=== PATIENT | female | born 1970 | race Caucasian/White ===

== ENCOUNTER 2020-08-20 16:47 | Observation (INO) | payer OTHER ==
[2020-08-20 17:14] LABS: Glucose,Whole Blood 199 mg/dL (75-99)
[2020-08-20] MEDS ORDERED: SODIUM CHLORIDE 0.9% 1,000 ML IV ONE (18:16)
--- NOTE | 2020-08-20 18:19 | ED ---
General Adult HPI - General Chief complaint: Weakness Stated complaint: Vomiting,Low BP,Dizziness Time Seen by Provider: 08/20/20 18:09 Source: patient, RN notes reviewed, old records reviewed Mode of arrival: wheelchair Limitations: no limitations - History of Present Illness Initial comments: 49-year-old female presented for evaluation of weakness, vomiting, and lightheadedness. Patient states her blood pressure has been running low. She had recent admission at outside hospital approximately 3 weeks ago with similar low blood pressures. She previously had high blood pressure and was on medication but has been off his medication for the past 3 months. She reports vomiting for the past 2 days, she's been unable to keep anything down. No collins rrhea. No abdominal pain. She had an episode of chest discomfort, no central radiating chest pain. No dyspnea. No dysuria. No fever or URI symptoms. - Related Data Home Medications Medication Instructions Recorded Confirmed Empagliflozin [Jardiance] 25 mg PO DAILY 08/20/20 08/20/20 Insulin Aspart Protam & Aspart See Protocol SQ AC-BID 08/20/20 08/20/20 [NovoLOG MIX 70-30 Flexpen] Lansoprazole [Prevacid] 30 mg PO DAILY 08/20/20 08/20/20 Semaglutide [Ozempic] 1 mg SQ PEREIRA 08/20/20 08/20/20 Allergies Allergy/AdvReac Type Severity Reaction Status Date / Time No Known Allergies Allergy Verified 08/20/20 20:10 Review of Systems ROS Statement: Those systems with pertinent positive or pertinent negative responses have been documented in the HPI. ROS Other: All systems not noted in ROS Statement are negative. Past Medical History Past Medical History: No Reported History History of Any Multi-Drug Resistant Organisms: None Reported Past Surgical History: Appendectomy, Cholecystectomy, Tonsillectomy Smoking Status: Never smoker Past Alcohol Use History: None Reported Past Drug Use History: None Reported General Exam Limitations: no limitations General appearance: alert, in no apparent distress Head exam: Present: atraumatic, normocephalic Eye exam: Present: normal appearance, PERRL ENT exam: Present: mucous membranes dry Neck exam: Present: normal inspection. Absent: tenderness, meningismus Respiratory exam: Present: normal lung sounds bilaterally. Absent: respiratory distress, wheezes Cardiovascular Exam: Present: regular rate, normal rhythm GI/Abdominal exam: Present: soft. Absent: distended, tenderness, guarding, rebo und Neurological exam: Present: alert, oriented X3, CN II-XII intact. Absent: motor sensory deficit Psychiatric exam: Present: normal affect, normal mood Skin exam: Present: warm, dry, intact. Absent: cyanosis, diaphoretic Course Vital Signs 08/20/20 08/20/20 17:09 19:53 Temperature 98.4 F Pulse Rate 107 H 100 Respiratory 18 18 Rate Blood Pressure 86/59 113/72 O2 Sat by Pulse 98 98 Oximetry EKG Findings - EKG Comments: EKG Findings:: EKG: Normal sinus rhythm, prolonged QT, no ST segment elevation, rate of 98, IN interval 120, QRS duration 88, QTC 497 Medical Decision Making - Medical Decision Making 49-year-old female presenting for evaluation of lightheadedness, hypotension. Symptoms have been somewhat ongoing for the past one month she had an admission at an outside hospital. She has been vomiting. Workup reveals EKG shows sinus rhythm, chest x-ray negative for acute cardio pulmonary disease, abdominal x-ray is negative for obstruction or intraperitoneal free air. She has mild leukocytosis. She has a sodium of 122 and a low chloride. Her blood glucose is 199. She has 4+ glucose and 2+ ketones on urinalysis. CO2 is normal. Patient is given 1 L normal saline bolus, placed on 75 mL normal saline per hour. Additional laboratory tests and urine tests have been ordered these results are pending. Case discussed with Dr. Valentin who will admit the patient. Nephrology is placed on consult, nephrology has been paged. - Lab Data Result diagrams: 08/20/20 18:51 08/20/20 18:51 Lab Results 08/20/20 08/20/20 08/20/20 Range/Units 17:13 18:51 18:51 WBC 13.6 H (3.8-10.6) k/uL RBC 5.87 H (3.80-5.40) m/uL Hgb 15.0 (11.4-16.0) gm/dL Hct 44.0 (34.0-46.0) % MCV 75.0 L (80.0-100.0) fL MCH 25.6 (25.0-35.0) pg MCHC 34.1 (31.0-37.0) g/dL RDW 14.9 (11.5-15.5) % Plt Count 288 (150-450) k/uL MPV 9.0 Neutrophils % 82 % Lymphocytes % 9 % Monocytes % 7 % Eosinophils % 0 % Basophils % 1 % Neutrophils # 11.2 H (1.3-7.7) k/uL Lymphocytes # 1.2 (1.0-4.8) k/uL Monocytes # 0.9 (0-1.0) k/uL Eosinophils # 0.0 (0-0.7) k/uL Basophils # 0.1 (0-0.2) k/uL Microcytosis Slight PT 10.8 (9.0-12.0) sec INR 1.0 (<1.2) APTT 22.2 (22.0-30.0) sec Sodium (137-145) mmol/L Potassium (3.5-5.1) mmol/L Chloride (98-107) mmol/L Carbon Dioxide (22-30) mmol/L Anion Gap mmol/L BUN (7-17) mg/dL Creatinine (0.52-1.04) mg/dL Est GFR (CKD-EPI)AfAm (>60 ml/min/1.73 sqM) Est GFR (CKD-EPI)NonAf (>60 ml/min/1.73 sqM) Glucose (74-99) mg/dL POC Glucose (mg/dL) 199 H (75-99) mg/dL POC Glu Hand Stripper ID Shanique Kahn Plasma Lactic Acid Jone (0.7-2.0) mmol/L Calcium (8.4-10.2) mg/dL Magnesium (1.6-2.3) mg/dL Total Bilirubin (0.2-1.3) mg/dL AST (14-36) U/L ALT (4-34) U/L Alkaline Phosphatase (38-126) U/L Troponin I (0.000-0.034) ng/mL Total Protein (6.3-8.2) g/dL Albumin (3.5-5.0) g/dL Urine Color Urine Appearance (Clear) Urine pH (5.0-8.0) Ur Specific [place] (1.001-1.035) Urine Protein (Negative) Urine Glucose (UA) (Negative) Urine Ketones (Negative) Urine Blood (Negative) Urine Nitrite (Negative) Urine Bilirubin (Negative) Urine Urobilinogen (<2.0) mg/dL Ur Leukocyte Esterase (Negative) Urine RBC (0-5) /hpf Urine WBC (0-5) /hpf Ur Squamous Epith Cells (0-4) /hpf Urine Bacteria (None) /hpf Hyaline Casts (0-2) /lpf Urine Mucus (None) /hpf 08/20/20 08/20/20 08/20/20 Range/Units 18:51 18:51 18:51 WBC (3.8-10.6) k/uL RBC (3.80-5.40) m/uL Hgb (11.4-16.0) gm/dL Hct (34.0-46.0) % MCV (80.0-100.0) fL MCH (25.0-35.0) pg MCHC (31.0-37.0) g/dL RDW (11.5-15.5) % Plt Count (150-450) k/uL MPV Neutrophils % % Lymphocytes % % Monocytes % % Eosinophils % % Basophils % % Neutrophils # (1.3-7.7) k/uL Lymphocytes # (1.0-4.8) k/uL Monocytes # (0-1.0) k/uL Eosinophils # (0-0.7) k/uL Basophils # (0-0.2) k/uL Microcytosis PT (9.0-12.0) sec INR (<1.2) APTT (22.0-30.0) sec Sodium 122 L (137-145) mmol/L Potassium 3.9 (3.5-5.1) mmol/L Chloride 78 L (98-107) mmol/L Carbon Dioxide 24 (22-30) mmol/L Anion Gap 20 mmol/L BUN 30 H (7-17) mg/dL Creatinine 1.14 H (0.52-1.04) mg/dL Est GFR (CKD-EPI)AfAm 65 (>60 ml/min/1.73 sqM) Est GFR (CKD-EPI)NonAf 57 (>60 ml/min/1.73 sqM) Glucose 191 H (74-99) mg/dL POC Glucose (mg/dL) (75-99) mg/dL POC Glu Hand Stripper ID Plasma Lactic Acid Jone 1.7 (0.7-2.0) mmol/L Calcium 10.7 H (8.4-10.2) mg/dL Magnesium 2.1 (1.6-2.3) mg/dL Total Bilirubin 1.4 H (0.2-1.3) mg/dL AST 23 (14-36) U/L ALT 16 (4-34) U/L Alkaline Phosphatase 62 (38-126) U/L Troponin I (0.000-0.034) ng/mL Total Protein 7.8 (6.3-8.2) g/dL Albumin 4.8 (3.5-5.0) g/dL Urine Color Yellow Urine Appearance Cloudy H (Clear) Urine pH 5.0 (5.0-8.0) Ur Specific [place] 1.026 (1.001-1.035) Urine Protein Trace H (Negative) Urine Glucose (UA) 4+ H (Negative) Urine Ketones 3+ H (Negative) Urine Blood Negative (Negative) Urine Nitrite Negative (Negative) Urine Bilirubin Negative (Negative) Urine Urobilinogen <2.0 (<2.0) mg/dL Ur Leukocyte Esterase Moderate H (Negative) Urine RBC 6 H (0-5) /hpf Urine WBC 11 H (0-5) /hpf Ur Squamous Epith Cells 4 (0-4) /hpf Urine Bacteria Occasional H (None) /hpf Hyaline Casts 10 H (0-2) /lpf Urine Mucus Few H (None) /hpf 08/20/20 Range/Units 18:51 WBC (3.8-10.6) k/uL RBC (3.80-5.40) m/uL Hgb (11.4-16.0) gm/dL Hct (34.0-46.0) % MCV (80.0-100.0) fL MCH (25.0-35.0) pg MCHC (31.0-37.0) g/dL RDW (11.5-15.5) % Plt Count (150-450) k/uL MPV Neutrophils % % Lymphocytes % % Monocytes % % Eosinophils % % Basophils % % Neutrophils # (1.3-7.7) k/uL Lymphocytes # (1.0-4.8) k/uL Monocytes # (0-1.0) k/uL Eosinophils # (0-0.7) k/uL Basophils # (0-0.2) k/uL Microcytosis PT (9.0-12.0) sec INR (<1.2) APTT (22.0-30.0) sec Sodium (137-145) mmol/L Potassium (3.5-5.1) mmol/L Chloride (98-107) mmol/L Carbon Dioxide (22-30) mmol/L Anion Gap mmol/L BUN (7-17) mg/dL Creatinine (0.52-1.04) mg/dL Est GFR (CKD-EPI)AfAm (>60 ml/min/1.73 sqM) Est GFR (CKD-EPI)NonAf (>60 ml/min/1.73 sqM) Glucose (74-99) mg/dL POC Glucose (mg/dL) (75-99) mg/dL POC Glu Hand Stripper ID Plasma Lactic Acid Jone (0.7-2.0) mmol/L Calcium (8.4-10.2) mg/dL Magnesium (1.6-2.3) mg/dL Total Bilirubin (0.2-1.3) mg/dL AST (14-36) U/L ALT (4-34) U/L Alkaline Phosphatase (38-126) U/L Troponin I <0.012 (0.000-0.034) ng/mL Total Protein (6.3-8.2) g/dL Albumin (3.5-5.0) g/dL Urine Color Urine Appearance (Clear) Urine pH (5.0-8.0) Ur Specific [place] (1.001-1.035) Urine Protein (Negative) Urine Glucose (UA) (Negative) Urine Ketones (Negative) Urine Blood (Negative) Urine Nitrite (Negative) Urine Bilirubin (Negative) Urine Urobilinogen (<2.0) mg/dL Ur Leukocyte Esterase (Negative) Urine RBC (0-5) /hpf Urine WBC (0-5) /hpf Ur Squamous Epith Cells (0-4) /hpf Urine Bacteria (None) /hpf Hyaline Casts (0-2) /lpf Urine Mucus (None) /hpf Disposition Clinical Impression: Hyponatremia, Dehydration, Hypotension Disposition: ADMITTED IP TO THIS HOSP Condition: Stable Is patient prescribed a controlled substance at d/c from ED?: No Referrals: Greer Golden MD [Primary Care Provider] - 1-2 days Decision to Admit Reason: Admit from EC Decision Date: 08/20/20 Decision Time: 20:33
[2020-08-20 19:10] LABS: Basophils # (A) 0.1 k/uL (0-0.2); Basophils % (A) 1 %; Eosinophils % (A) 0 %; Lymphocytes # (A) 1.2 k/uL (1.0-4.8); Lymphocytes % (A) 9 %; MCH 25.6 pg (25.0-35.0); MCHC 34.1 g/dL (31.0-37.0); Microcytosis Slight; Monocytes # (A) 0.9 k/uL (0-1.0); Monocytes % (A) 7 %; Neutrophils # (A) 11.2 k/uL (1.3-7.7); Neutrophils % (A) 82 %; Platelet Count 288 k/uL (150-450); RBC 5.87 m/uL (3.80-5.40); RDW 14.9 % (11.5-15.5); WBC 13.6 k/uL (3.8-10.6)
[2020-08-20 19:15] LABS: Appearance,Urine Cloudy (Clear); Bacteria,Urine Occasional /hpf; Bilirubin,Urine Negative (Negative); Blood,Urine Negative (Negative); Color,Urine Yellow; Glucose,Urine (UA) 4+ (Negative); Hyaline Casts,Urine 10 /lpf (0-2); Leukocyte Esterase,Urine Moderate (Negative); Mucus,Urine Few /hpf; Nitrite,Urine Negative (Negative); Protein,Urine Trace (Negative); RBC,Urine 6 /hpf (0-5); Specific Gravity,Urine 1.026 (1.001-1.035); Squamous Epithelial Cell,Urine 4 /hpf (0-4); Urobilinogen,Urine <2.0 mg/dL (<2.0); WBC,Urine 11 /hpf (0-5)
[2020-08-20 19:18] LABS: Ketones,Urine 3+ (Negative)
[2020-08-20 19:19] LABS: Albumin 4.8 g/dL (3.5-5.0); Calcium 10.7 mg/dL (8.4-10.2); Magnesium 2.1 mg/dL (1.6-2.3); Potassium 3.9 mmol/L (3.5-5.1); Total Bilirubin 1.4 mg/dL (0.2-1.3); Total Protein 7.8 g/dL (6.3-8.2)
--- NOTE | 2020-08-20 19:19 | XR ---
EXAMINATION TYPE: XR KUB DATE OF EXAM: 08/20/2020 COMPARISON: NONE HISTORY: Vomiting TECHNIQUE: 2 views upright FINDINGS: Bowel gas pattern is normal. There is no sign of intestinal obstruction or pneumoperitoneum . Fecal pattern is normal. Lung bases are clear. There are clips from cholecystectomy. There are no c alcifications over the kidneys. IMPRESSION: Nonacute abdomen.
--- NOTE | 2020-08-20 19:21 | XR ---
EXAMINATION TYPE: XR chest 2V DATE OF EXAM: 08/20/2020 COMPARISON: NONE HISTORY: Vomiting. TECHNIQUE: 2 views FINDINGS: Heart and mediastinum are normal. Lungs are clear. Diaphragm is normal. There are chest wallace ds. Bony thorax appears normal. IMPRESSION: Normal chest.
[2020-08-20 19:39] LABS: Partial Thromboplastin Time 22.2 sec (22.0-30.0); Prothrombin Time 10.8 sec (9.0-12.0)
[2020-08-20] MEDS ORDERED: NALOXONE 0.4 MG/ML 1 ML VIAL IV PRN (20:14)
[2020-08-20] MEDS: SODIUM CHLORIDE 0.9% 1,000 ML IV SCH ×2 (20:44→20:55)
[2020-08-20] MEDS ORDERED: PANTOPRAZOLE 40 MG TABLET PO STA (22:14)
[2020-08-21 07:36] LABS: Basophils # (A) 0.1 k/uL (0-0.2); Basophils % (A) 1 %; Eosinophils # (A) 0.1 k/uL (0-0.7); Eosinophils % (A) 1 %; HCT 42.2 % (34.0-46.0); HGB 14.2 gm/dL (11.4-16.0); Lymphocytes # (A) 2.3 k/uL (1.0-4.8); Lymphocytes % (A) 26 %; MCH 25.6 pg (25.0-35.0); MCHC 33.7 g/dL (31.0-37.0); MCV 75.9 fL (80.0-100.0); Mean Platelet Volume 8.5; Microcytosis Slight; Monocytes # (A) 0.8 k/uL (0-1.0); Monocytes % (A) 9 %; Neutrophils # (A) 5.4 k/uL (1.3-7.7); Neutrophils % (A) 61 %; Platelet Count 276 k/uL (150-450); RBC 5.56 m/uL (3.80-5.40); RDW 15.1 % (11.5-15.5)
[2020-08-21 08:21] LABS: African American GFR (CKD) >90 (>60 ml/min/1.73 sqM); Anion Gap 11 mmol/L; Blood Urea Nitrogen 21 mg/dL (7-17); Carbon Dioxide 32 mmol/L (22-30); Chloride 86 mmol/L (98-107); Glucose 94 mg/dL (74-99); Magnesium 2.1 mg/dL (1.6-2.3); Non-African American GFR(CKD) >90 (>60 ml/min/1.73 sqM); Phosphorus 3.8 mg/dL (2.5-4.5); Potassium 4.4 mmol/L (3.5-5.1); Sodium 129 mmol/L (137-145)
[2020-08-21] MEDS: HEPARIN SODIUM,PORCINE 5,000 UNIT/ML 1 ML VIAL SQ SCH ×2 (09:34→21:24)
[2020-08-21] MEDS: SODIUM CHLORIDE 0.9% 1,000 ML IV SCH (09:34)
--- NOTE | 2020-08-21 09:38 | P.HPIM ---
History of Present Illness This is a pleasant 49 years old female with past medical history of diabetes mellitus, GERD. Presents because of weakness, vomiting and lightheadedness. her PCP is Dr. Mendez. Also she has hypertension. At home she was on a guardian's, NovoLog mix 70-30, Prevacid and semaglutide . She is to follow up with comic book designer Dr. Saini and she is currently on juardian's, semaglutide and insulin sliding scale but really she did not needed. She presents because of feeling hypertensive, dizzy and some confusion, she usually her blood pressure is in the range of 125/70 to 80s, before coming to the hospital this time her blood pressure was 80/58 when she checked it at home. Also she vomited about 5 times over the last couple days but no abdominal pain or diarrhea. She denies dysuria but she admits for polyuria as she's been frequently with good amounts, which is unlikely only because of hyperglycemia because she is dehydrated already and hypertensive however her urinalysis was suspicious for infection although she denies dysuria or back pain or fever. She states 3 weeks ago she has similar symptoms and she wanted [facility] where they did cardiac workup and it was unrevealing and then released. She denies smoking, alcohol or illicit drugs On admission her blood pressure was 86/59, tachycardia at 100 107, afebrile. Saturating 99% on room air. She has some leukocytosis of 13.6 came back to normal at 9.0, hemoglobin 14.2 and platelets are normal at 276. She has low sodium level at 122 and this morning 129, she has mild acute kidney injury with creatinine 1.1 came back to normal at 0.6. Urinalysis is suspicious for infection. Troponin is negative. Liver enzymes elevated. Urine osmolality was elevated at 491. EKG showing normal sinus rhythm at 98 BPM with no significant ST-T changes Chest x-ray: No acute process. KUB of the abdomen: Nonacute abdomen Review of Systems CONSTITUTIONAL: No fever, no malaise, no fatigue. HEENT: No recent visual problems or hearing problems. Denied any sore throat. CARDIOVASCULAR: No orthopnea, PND, no palpitations, no syncope. PULMONARY: No shortness of breath, no cough, no hemoptysis. GASTROINTESTINAL: No diarrhea, no nausea, no vomiting, no abdominal pain. Normoactive bowel sounds. NEUROLOGICAL: No headaches, no weakness, no numbness. HEMATOLOGICAL: Denies any bleeding or petechiae. GENITOURINARY: Denies any burning micturition, frequency, or urgency. MUSCULOSKELETAL/RHEUMATOLOGICAL: Denies any joint pain, swelling, or any muscle pain. ENDOCRINE: Denies any polyuria or polydipsia. Past Medical History Past Medical History: Diabetes Mellitus, GERD/Reflux History of Any Multi-Drug Resistant Organisms: None Reported Past Surgical History: Appendectomy, Cholecystectomy, Tonsillectomy Past Anesthesia/Blood Transfusion Reactions: No Reported Reaction Past Psychological History: No Psychological Hx Reported Smoking Status: Never smoker Past Alcohol Use History: None Reported Past Drug Use History: None Reported Medications and Allergies Home Medications Medication Instructions Recorded Confirmed Type Empagliflozin [Jardiance] 25 mg PO DAILY 08/20/20 08/20/20 History Insulin Aspart Protam & Aspart See Protocol SQ AC-BID 08/20/20 08/20/20 History [NovoLOG MIX 70-30 Flexpen] Lansoprazole [Prevacid] 30 mg PO DAILY 08/20/20 08/20/20 History Semaglutide [Ozempic] 1 mg SQ PEREIRA 08/20/20 08/20/20 History Allergies Allergy/AdvReac Type Severity Reaction Status Date / Time No Known Allergies Allergy Verified 08/20/20 20:10 Physical Exam Vitals: Vital Signs Temp Pulse Pulse Resp BP BP Pulse Ox 08/21/20 07:37 98.3 F 89 16 99/64 99 08/21/20 06:20 97.8 F 87 17 117/56 97 08/20/20 23:54 97.6 F 95 17 111/69 99 08/20/20 22:08 100 18 115/64 99 08/20/20 20:55 100 18 107/70 99 08/20/20 19:53 100 18 113/72 98 08/20/20 17:09 98.4 F 107 H 18 86/59 98 Intake and Output 08/20/20 08/21/20 08/21/20 22:59 06:59 14:59 Intake Total 885 Output Total 300 Balance 585 Intake: Intake, IV Titration 525 Amount Sodium Chloride 0.9% 1, 525 000 ml @ 75 mls/hr IV . [id number] [facility] Rx#:[id number] Oral 360 Output: Urine 300 Other: Voiding Method Toilet # Voids 1 Weight 78.925 kg 78.925 kg GENERAL: The patient is alert and oriented x3, not in any acute distress. Well developed, well nourished. HEENT: Pupils are round and equally reacting to light. EOMI. No scleral icterus. No conjunctival pallor. Normocephalic, atraumatic. No pharyngeal erythema. No thyromegaly. CARDIOVASCULAR: S1 and S2 present. No murmurs, rubs, or gallops. PULMONARY: Chest is clear to auscultation, no wheezing or crackles. ABDOMEN: Soft, nontender, nondistended, normoactive bowel sounds. No palpable organomegaly. MUSCULOSKELETAL: No joint swelling or deformity. EXTREMITIES: No cyanosis, clubbing, or pedal edema. NEUROLOGICAL: Gross neurological examination did not reveal any focal deficits. SKIN: No rashes. No petechiae Results CBC & Chem 7: 08/21/20 07:04 08/21/20 07:04 Labs: Abnormal Lab Results - Last 24 Hours (Table) 08/20/20 08/20/20 08/20/20 Range/Units 17:13 18:51 18:51 WBC 13.6 H (3.8-10.6) k/uL RBC 5.87 H (3.80-5.40) m/uL MCV 75.0 L (80.0-100.0) fL Neutrophils # 11.2 H (1.3-7.7) k/uL Sodium (137-145) mmol/L Chloride (98-107) mmol/L Carbon Dioxide (22-30) mmol/L BUN (7-17) mg/dL Creatinine (0.52-1.04) mg/dL Glucose (74-99) mg/dL POC Glucose (mg/dL) 199 H (75-99) mg/dL Osmolality (280-301) mosm/kg Calcium (8.4-10.2) mg/dL Total Bilirubin (0.2-1.3) mg/dL Urine Appearance Cloudy H (Clear) Urine Protein Trace H (Negative) Urine Glucose (UA) 4+ H (Negative) Urine Ketones 3+ H (Negative) Ur Leukocyte Esterase Moderate H (Negative) Urine RBC 6 H (0-5) /hpf Urine WBC 11 H (0-5) /hpf Urine Bacteria Occasional H (None) /hpf Hyaline Casts 10 H (0-2) /lpf Urine Mucus Few H (None) /hpf 08/20/20 08/21/20 08/21/20 Range/Units 18:51 07:04 07:04 WBC (3.8-10.6) k/uL RBC 5.56 H (3.80-5.40) m/uL MCV 75.9 L (80.0-100.0) fL Neutrophils # (1.3-7.7) k/uL Sodium 122 L 129 L (137-145) mmol/L Chloride 78 L 86 L (98-107) mmol/L Carbon Dioxide 32 H (22-30) mmol/L BUN 30 H 21 H (7-17) mg/dL Creatinine 1.14 H (0.52-1.04) mg/dL Glucose 191 H (74-99) mg/dL POC Glucose (mg/dL) (75-99) mg/dL Osmolality 275 L (280-301) mosm/kg Calcium 10.7 H (8.4-10.2) mg/dL Total Bilirubin 1.4 H (0.2-1.3) mg/dL Urine Appearance (Clear) Urine Protein (Negative) Urine Glucose (UA) (Negative) Urine Ketones (Negative) Ur Leukocyte Esterase (Negative) Urine RBC (0-5) /hpf Urine WBC (0-5) /hpf Urine Bacteria (None) /hpf Hyaline Casts (0-2) /lpf Urine Mucus (None) /hpf Microbiology - Last 24 Hours (Table) 08/20/20 18:51 Urine Culture - Preliminary Urine,Voided Thrombosis Risk Factor Assmnt - Choose All That Apply Any of the Below Risk Factors Present?: Yes Each Factor Represents 1 point: Age 41-60 years Other Risk Factors: No Other congenital or acquired thrombophilia - If yes, enter type in comment: No Thrombosis Risk Factor Assessment Total Risk Factor Score: 1 Thrombosis Risk Factor Assessment Level: Low Risk Assessment and Plan Assessment: Hyponatremia Dehydration and hypovolemia Acute kidney injury, improved Acute urinary tract infection History of GERD Diabetes mellitus Plan: This is a pleasant 49 years old female who presents with UTI, dehydration and hyponatremia. Start the patient on ceftriaxone follow-up urine culture. Monitor sodium and follow-up not durable medical equipment technician recommendation. Continue gentle hydration. Check hemoglobin A1c Labs and medication were reviewed.. Continue same treatment. Continue with symptomatic treatment. Resume home medication. Monitor lytes and vitals. DVT and GI prophylaxis. Further recommendations depends on the clinical course of the patient DVT prophylaxis: Subcutaneous heparin GI Prophylaxis: Ppi
--- NOTE | 2020-08-21 12:01 | P.NPCON ---
History of Present Illness - Reason for Consult hyponatremia - History of Present Illness Reason for consultation: Hyponatremia History of present illness: The patient is a 49-year-old female seen in renal consultation for hyponatremia. Patient states she was recently at [facility] with similar complaints and underwent cardiac workup. She didn't feel well enough for discharge. Patient states last few days she's been feeling lightheaded and dizzy. She denies any falls or syncopal episodes. She did vomit about 2 days ago but none since. She has been voiding. No hematuria or dysuria. Appetite has been poor the last couple of days. She has been drinking quite a bit of water to keep herself hydrated. No history of malignancy. Denies taking any diuretics at home. No history of high blood pressure. She does have history of diabetes. Denies family history of renal di sease but states her father had [place]'s disease. No chest pain or shortness of breath. No edema. No fever or chills. Sodium level was 122 on admission and she received a 1 L normal saline bolus and was then started on normal saline at 75 mL an hour for maintenance fluids. Sodium level 129 this morning. Vital signs are stable. General: The patient appeared well nourished and normally developed. HEENT: Head exam is unremarkable. Neck is without jugular venous distension. LUNGS: Lungs are clear to auscultation and percussion. Breath sounds decreased. HEART: Rate and Rhythm are regular. ABDOMEN: Soft, nontender. EXTREMITITES: No clubbing, cyanosis, or edema. Past Medical History Past Medical History: Diabetes Mellitus, GERD/Reflux History of Any Multi-Drug Resistant Organisms: None Reported Past Surgical History: Appendectomy, Cholecystectomy, Tonsillectomy Past Anesthesia/Blood Transfusion Reactions: No Reported Reaction Past Psychological History: No Psychological Hx Reported Smoking Status: Never smoker Past Alcohol Use History: None Reported Past Drug Use History: None Reported Medications and Allergies Home Medications Medication Instructions Recorded Confirmed Type Empagliflozin [Jardiance] 25 mg PO DAILY 08/20/20 08/20/20 History Insulin Aspart Protam & Aspart See Protocol SQ AC-BID 08/20/20 08/20/20 History [NovoLOG MIX 70-30 Flexpen] Lansoprazole [Prevacid] 30 mg PO DAILY 08/20/20 08/20/20 History Semaglutide [Ozempic] 1 mg SQ PEREIRA 08/20/20 08/20/20 History Allergies Allergy/AdvReac Type Severity Reaction Status Date / Time No Known Allergies Allergy Verified 08/20/20 20:10 Physical Exam Vitals: Vital Signs Temp Pulse Pulse Resp BP BP Pulse Ox 08/21/20 07:37 98.3 F 89 16 99/64 99 08/21/20 06:20 97.8 F 87 17 117/56 97 08/20/20 23:54 97.6 F 95 17 111/69 99 08/20/20 22:08 100 18 115/64 99 08/20/20 20:55 100 18 107/70 99 08/20/20 19:53 100 18 113/72 98 08/20/20 17:09 98.4 F 107 H 18 86/59 98 Intake and Output 08/20/20 08/21/20 08/21/20 22:59 06:59 14:59 Intake Total 885 200 Output Total 300 Balance 585 200 Intake: Intake, IV Titration 525 Amount Sodium Chloride 0.9% 1, 525 000 ml @ 75 mls/hr IV . [id number] [facility] Rx#:[id number] Oral 360 200 Output: Urine 300 Other: Voiding Method Toilet # Voids 1 Weight 78.925 kg 78.925 kg Results - Lab Results Most recent lab results Calcium 10.0 mg/dL (8.4-10.2) 08/21/20 07:04 Phosphorus 3.8 mg/dL (2.5-4.5) 08/21/20 07:04 Magnesium 2.1 mg/dL (1.6-2.3) 08/21/20 07:04 08/21/20 07:04 08/21/20 07:04 Assessment and Plan Plan: Assessment: 1. Hypovolemic hyponatremia improved with IV hydration. TSH normal. Rule out adrenal insufficiency due to hypotension. Urine sodium 57 and urine osmolality 491. 2. Mild acute kidney injury mostly prerenal improved with IV hydration. 3. Pyuria maintained on antibiotics. Urine culture pending. Plan: Hep-Lock IV fluids. Check a.m. cortisol level. 1500 mL fluid restriction. Encourage oral intake, particularly protein. Repeat electrolytes in the morning. Thank you for the consultation. I will continue to follow the patient with you during her hospital stay.
[2020-08-21 15:31] LABS: Hemoglobin A1C 6.9 % (4.0-6.0)
[2020-08-22 08:31] LABS: Glucose,Whole Blood 115 mg/dL (75-99)
[2020-08-22] MEDS: HEPARIN SODIUM,PORCINE 5,000 UNIT/ML 1 ML VIAL SQ SCH ×2 (08:31→21:31)
[2020-08-22 09:37] LABS: African American GFR (CKD) 117.1 (60.0-200.0); BUN/Creat Ratio 21.43 Ratio (12.00-20.00); Calcium 9.9 mg/dL (8.7-10.3); Magnesium 2.3 mg/dL (1.5-2.4); Potassium 4.2 mmol/L (3.5-5.5)
[2020-08-22 12:58] LABS: Glucose,Whole Blood 94 mg/dL (75-99)
[2020-08-22] MEDS ORDERED: COSYNTROPIN 0.25 MG VIAL IVP ONE (15:07)
--- NOTE | 2020-08-22 15:08 | P.PN ---
Subjective Patient is seen in follow-up for hyponatremia. Sodium level normal today. GFR at baseline. Blood pressure stable. Feels tired. Vital signs are stable. General: The patient appeared well nourished and normally developed. HEENT: Head exam is unremarkable. Neck is without jugular venous distension. LUNGS: Lungs are clear to auscultation and percussion. Breath sounds decreased. HEART: Rate and Rhythm are regular. First and second heart sounds normal. No murmurs, rubs or gallops. ABDOMEN: Soft, nontender. EXTREMITITES: No clubbing, cyanosis, or edema. Objective - Vital Signs Vital signs: Vital Signs Temp 97.3 F L 08/22/20 12: Pulse 80 08/22/20 12:02 Resp 17 08/22/20 12: BP 107/72 08/22/20 12:02 Pulse Ox 99 08/22/20 12:02 Intake & Output 08/21/20 08/22/20 08/22/20 18:59 06:59 18:59 Intake Total 200 360 Balance 200 360 Intake: Oral 200 360 Other: Voiding Method Toilet # Voids 2 1 - Labs CBC & Chem 7: 08/21/20 07:04 08/22/20 05:48 Labs: Abnormal Lab Results - Last 24 Hours (Table) 08/21/20 08/22/20 08/22/20 Range/Units 07:04 05:48 08:30 Chloride 95 L (96-109) mmol/L Carbon Dioxide 34.0 H (21.6-31.8) mmol/L BUN/Creatinine Ratio 21.43 H (12.00-20.00) Ratio Glucose 117 H (70-110) mg/dL POC Glucose (mg/dL) 115 H (75-99) mg/dL Hemoglobin A1c 6.9 H (4.0-6.0) % Microbiology - Last 24 Hours (Table) 08/20/20 18:51 Urine Culture - Preliminary Urine,Voided Gram Neg Bacilli 08/20/20 18:51 Blood Culture - Preliminary Blood No Growth after 24 hours Assessment and Plan Plan: Assessment: 1. Hypovolemic hyponatremia improved with IV hydration. TSH normal. Morning cortisol normal but a little on the lower end. Urine sodium 57 and urine osmolality 491. 2. Mild acute kidney injury mostly prerenal improved with IV hydration. 3. UTI with urine culture positive for gram-negative bacilli maintained on antibiotics. Plan: 1500 mL fluid restriction. Encourage oral intake, particularly protein. Check cosyntropin stimulation test.
[2020-08-22 17:08] LABS: Glucose,Whole Blood 122 mg/dL (75-99)
[2020-08-22 20:57] LABS: Glucose,Whole Blood 253 mg/dL (75-99)
--- NOTE | 2020-08-23 00:09 | P.PN ---
Subjective This is a pleasant 49 years old female with past medical history of diabetes mellitus, GERD. Presents because of weakness, vomiting and lightheadedness. her PCP is Dr. Mendez. Also she has hypertension. At home she was on a guardian's, NovoLog mix 70-30, Prevacid and semaglutide . She is to follow up with plastics supervisor Dr. Saini and she is currently on juardian's, semaglutide and insulin sliding scale but really she did not needed. She presents because of feeling hypertensive, dizzy and some confusion, she usually her blood pressure is in the range of 125/70 to 80s, before coming to the hospital this time her blood pressure was 80/58 when she checked it at home. Also she vomited about 5 times over the last couple days but no abdominal pain or diarrhea. She denies dysuria but she admits for polyuria as she's been frequently with good amounts, which is unlikely only because of hyperglycemia because she is dehydrated already and hypertensive however her urinalysis was suspicious for infection although she denies dysuria or back pain or fever. She states 3 weeks ago she has similar symptoms and she wanted [facility] where they did cardiac workup and it was unrevealing and then released. She denies smoking, alcohol or illicit drugs On admission her blood pressure was 86/59, tachycardia at 100 107, afebrile. Saturating 99% on room air. She has some leukocytosis of 13.6 came back to normal at 9.0, hemoglobin 14.2 and platelets are normal at 276. She has low sodium level at 122 and this morning 129, she has mild acute kidney injury with creatinine 1.1 came back to normal at 0.6. Urinalysis is suspicious for i nfection. Troponin is negative. Liver enzymes elevated. Urine osmolality was elevated at 491. EKG showing normal sinus rhythm at [address] BPM with no significant ST-T changes Chest x-ray: No acute process. KUB of the abdomen: Nonacute abdomen 08/24/2020 Patient clinically she is doing very good, she took the bath this morning and she was walking in the room appropriately complaining of from some mild dizziness but she states is much improved than when she came in. Her sodium came back to normal today. Blood pressure is better. Solution Architect team recommended cosyntropin test today that was negative they cleared her for discharge However urine culture is showing gram-negative bacilli, pending to finalize and she remains on Rocephin for now Objective - Vital Signs Vital signs: Vital Signs Temp 97.3 F L 08/22/20 12:02 Pulse 80 08/22/20 12:02 Resp 17 08/22/20 12:02 BP 107/72 08/22/20 12:02 Pulse Ox 99 08/22/20 12:02 Intake & Output 08/21/20 08/22/20 08/22/20 18:59 06:59 18:59 Intake Total 200 360 Balance 200 360 Intake: Oral 200 360 Other: Voiding Method Toilet # Voids 2 1 - Exam GENERAL: The patient is alert and oriented x3, not in any acute distress. Well developed, well nourished. HEENT: Pupils are round and equally reacting to light. EOMI. No scleral icterus. No conjunctival pallor. Normocephalic, atraumatic. No pharyngeal erythema. No thyromegaly. CARDIOVASCULAR: S1 and S2 present. No murmurs, rubs, or gallops. PULMONARY: Chest is clear to auscultation, no wheezing or crackles. ABDOMEN: Soft, nontender, nondistended, normoactive bowel sounds. No palpable organomegaly. MUSCULOSKELETAL: No joint swelling or deformity. EXTREMITIES: No cyanosis, clubbing, or pedal edema. NEUROLOGICAL: Gross neurological examination did not reveal any focal deficits. SKIN: No rashes. no petechiae. - Labs CBC & Chem 7: 08/21/20 07:04 08/22/20 05:48 Labs: Abnormal Lab Results - Last 24 Hours (Table) 08/22/20 08/22/20 Range/Units 05:48 08:30 Chloride 95 L (96-109) mmol/L Carbon Dioxide 34.0 H (21.6-31.8) mmol/L BUN/Creatinine Ratio 21.43 H (12.00-20.00) Ratio Glucose 117 H (70-110) mg/dL POC Glucose (mg/dL) 115 H (75-99) mg/dL Microbiology - Last 24 Hours (Table) 08/20/20 18:51 Urine Culture - Preliminary Urine,Voided Gram Neg Bacilli 08/20/20 18:51 Blood Culture - Preliminary Blood No Growth after 24 hours Assessment and Plan Assessment: Hyponatremia Dehydration and hypovolemia Acute kidney injury, improved Acute urinary tract infection History of GERD Diabetes mellitus Plan: This is a pleasant 49 years old female who presents with UTI, dehydration and hyponatremia. Start the patient on ceftriaxone follow-up urine culture. Monitor sodium and follow-up not science tutor recommendation. Continue gentle hydration. Check hemoglobin A1c Labs and medication were reviewed.. Continue same treatment. Continue with symptomatic treatment. Resume home medication. Monitor lytes and vitals. DVT and GI prophylaxis. Further recommendations depends on the clinical course of the patient DVT prophylaxis: Subcutaneous heparin GI Prophylaxis: Ppi
[2020-08-23] MEDS: HEPARIN SODIUM,PORCINE 5,000 UNIT/ML 1 ML VIAL SQ SCH (07:32)
[2020-08-23 07:38] LABS: Glucose,Whole Blood 97 mg/dL (75-99)
[2020-08-23] MEDS ORDERED: SODIUM CHLORIDE 0.9% 1,000 ML IV ONE (08:52)
[2020-08-23 11:40] LABS: Glucose,Whole Blood 156 mg/dL (75-99)
[2020-08-23 12:14] VITALS: BP 112/74; PULSE 75; RESP 16; TEMP 97.8
--- NOTE | 2020-08-23 13:01 | P.PN ---
Subjective Patient is seen in follow-up for hyponatremia. Sodium level normal as of yesterday. GFR at baseline. Blood pressure was a little bit on the lower side this morning and she received 1 L bolus of normal saline. No active complaints at this time. Vital signs are stable. General: The patient appeared well nourished and normally developed. HEENT: Head exam is unremarkable. Neck is without jugular venous distension. LUNGS: Lungs are clear to auscultation and percussion. Breath sounds decreased. HEART: Rate and Rhythm are regular. ABDOMEN: Soft, nontender. EXTREMITITES: No clubbing, cyanosis, or edema. Objective - Vital Signs Vital signs: Vital Signs Temp 97.8 F 08/23/20 12:14 Pulse 75 08/23/20 12:14 Resp 16 08/23/20 12:14 BP 112/74 08/23/20 12:14 Pulse Ox 100 08/23/20 12:14 Intake & Output 08/22/20 08/23/20 08/23/20 18:59 06:59 18:59 Other: Voiding Method Toilet Toilet # Voids 1 - Labs CBC & Chem 7: 08/21/20 07:04 08/22/20 05:48 Labs: Abnormal Lab Results - Last 24 Hours (Table) 08/22/20 08/22/20 08/23/20 Range/Units 17:06 20:55 11:39 POC Glucose (mg/dL) 122 H 253 H 156 H (75-99) mg/dL Microbiology - Last 24 Hours (Table) 08/20/20 18:51 Urine Culture - Final Urine,Voided Escherichia coli 08/20/20 18:51 Blood Culture - Preliminary Blood No Growth after 48 hours Assessment and Plan Plan: Assessment: 1. Hypovolemic hyponatremia improved with IV hydration. TSH normal. Morning cortisol normal but a little on the lower end. Urine sodium 57 and urine osmolality 491. Cosyntropin stimulation test was performed and was not sugges tive of adrenal insufficiency. 2. Mild acute kidney injury mostly prerenal improved with IV hydration. 3. UTI with urine culture positive for E. coli maintained on antibiotics. Plan: Encourage oral intake, particularly protein. I advised her to maintain a fluid restriction of about 40 ounces per day. Repeat BMP in 3-4 days postdischarge. Anticipate discharge soon
--- NOTE | 2020-09-10 12:12 | P.DS ---
Providers Date of admission: 08/20/20 20:16 Attending physician: Luis A Valentin MD Consults: 08/20/20 20:15 Consult Physician Routine Consulting Provider: Willian Perez Consult Reason/Comments: hypona+ Do you want consulting provider notified?: Already Contacted Primary care physician: Greer Golden MD Hospital Course: Diagnoses: Hyponatremia, improved with hydration back to normal Dehydration and hypovolemia, improved Acute kidney injury, improved Acute urinary tract infection, discharge on Ceftin 7 days History of GERD Diabetes mellitus Hospital course: This is a pleasant 49 years old female with past medical history of diabetes mellitus, GERD. Presents because of weakness, vomiting and lightheadedness. her PCP is Dr. Mendez. Also she has hypertension. She presents because of feeling hy potensive, dizzy and some confusion, she usually her blood pressure is in the range of 125/70 to 80s, before coming to the hospital this time her blood pressure was 80/58 when she checked it at home. Also she vomited about 5 times over the last couple days but no abdominal pain or diarrhea. On admission her sodium was low 122, improved with IV fluids to normal at 137 upon discharge at an appropriate rate of correction. Wire Spinner was on the case. Adrenal insufficiency was suspected however cosyntropin test was negative. Also patient treated for UTI with antibiotics showing improvement, UTI is suspected to be the culprit for her nausea and vomiting and dehydration, urine culture is showing E coli sensitive to antibiotics and she was discharged on Ceftin. Cardiac discharge patient returned to baseline, she was working in the room with no difficulty, asymptomatic and willing to go home Patient was cleared for discharge by nephrology team Problems and management plan were discussed with the patient and he verbalized understanding and acceptance Patient was found stable and can be discharged home however he needs follow-up as an outpatient. Patient was instructed to follow up with PCP Dr. Mendez within one week and patient agrees Patient was instructed to follow up with vegetable grader Dr. Perez in 1-2 weeks and she agrees Gen: patient is a AAOx3, no distress CVS: S1-S2, RRR, no murmur Lungs: B/L CTA, no wheezing Abdomen: soft, no distention, no tenderness, positive bowel sounds Extremity: no leg edema or induration Time spent more than 35 minutes Patient Condition at Discharge: Stable Plan - Discharge Summary Discharge Rx Participant: No New Discharge Prescriptions: New Cefuroxime Axetil [Ceftin] 500 mg PO BID 7 Days #14 tab Continue Semaglutide [Ozempic] 1 mg SQ PEREIRA Lansoprazole [Prevacid] 30 mg PO DAILY Empagliflozin [Jardiance] 25 mg PO DAILY Insulin Aspart Protam & Aspart [NovoLOG MIX 70-30 Flexpen] See Protocol SQ AC-BID Discharge Medication List Empagliflozin [Jardiance] 25 mg PO DAILY 08/20/20 [History] Insulin Aspart Protam & Aspart [NovoLOG MIX 70-30 Flexpen] See Protocol SQ AC- BID 08/20/20 [History] Lansoprazole [Prevacid] 30 mg PO DAILY 08/20/20 [History] Semaglutide [Ozempic] 1 mg SQ PEREIRA 08/20/20 [History] Cefuroxime Axetil [Ceftin] 500 mg PO BID 7 Days #14 tab 08/23/20 [Rx] Follow up Appointment(s)/Referral(s): Greer Golden MD [Primary Care Provider] - 08/30/20 9:30 am ([id number] [place] [address] ) Willian Perez DO [STAFF PHYSICIAN] - 2 Weeks (office will call with appointment time) Patient Instructions/Handouts: Urinary Tract Infection in Women (DC), Hyponatremia (DC) Activity/Diet/Wound Care/Special Instructions: your previous diet activity is limited till you see your doctor Discharge Disposition: HOME SELF-CARE
== END 2020-08-23 15:15 | disposition home or self-care (01) ==
LOC: EC 16:47 → 6NMEDSUR 20:16 → INTOOBSV 20:16 → 5NMEDONC 22:48 → UNDODISIN 08-23 15:15
PROVIDERS: ADMIT Internal Medicine; ATTEND Internal Medicine
DX: E87.1 Hypo-osmolality and hyponatremia (principal); N17.9 Acute kidney failure, unspecified; N39.0 Urinary tract infection, site not specified; B96.20 Unspecified Escherichia coli [E. coli] as the cause of diseases classified elsewhere; I95.9 Hypotension, unspecified; E86.0 Dehydration; E86.1 Hypovolemia; E11.65 Type 2 diabetes mellitus with hyperglycemia; I10 Essential (primary) hypertension; K21.9 Gastro-esophageal reflux disease without esophagitis; R74.8 Abnormal levels of other serum enzymes; Z79.4 Long term (current) use of insulin; Z79.899 Other long term (current) drug therapy; Z90.49 Acquired absence of other specified parts of digestive tract; Z90.89 Acquired absence of other organs; Z87.19 Personal history of other diseases of the digestive system; Z87.898 Personal history of other specified conditions; Z83.49 Family history of other endocrine, nutritional and metabolic diseases
CPT/HCPCS: 96361 ×2; 96365; 96366 ×2; 96375; 99285; 36415; 93005; 84300; 83930; 80053; 80048 ×2; 84443; 82533 ×2; 83605; 83735 ×3; 84100; 84484; 85025 ×2; 85610; 85730; 81001; 83935; 87040; 87086; 87077; 87186; 83036; 71046; 74018; G0378 ×5; J0834; J0696 ×3; 96360